=== PATIENT | male | born 1965 | race Caucasian/White ===

== ENCOUNTER → 2016-10-21 | Outpatient (CLI) | payer OTHER ==
[~2016-10-21] MED LIST: ACETAMINOPHEN650 M1 PO; ADVANCED ANTAC355 ML PO; ALEVE220 M1 PO; AMBIEN PO; ANTARA PO; B-121000 MC1 PO; B12 HEALTH1000 MCG/1 PO; BACTRIM DS TABL1 TA1 PO; BYSTOLIC5 MG PO; CELEXA20 MG PO; CLEOCIN HCL300 M1 PO; COMBIVENT U/D3 M2 INH; COREG12.5 MG PO; CYMBALTA PO; CYMBALTA20 MG; CYMBALTA20 MG PO; CYMBALTA30 MG PO; DEPRIZINE15 MG/1 ML PO; DESYREL50 MG PO; DIOVAN 320 MG PO; DIOVAN HCT 320/1 TA2 PO; DIOVAN160 MG PO; DIOVAN40 MG PO; DULOXETINE HCL60 MG PO; EXFORGE 5-160 M1 TAB PO; EXFORGE HCT 101 EAC2 PO; FLEXERIL PO; FLEXERIL10 M1 PO; FLEXERIL10 MG PO; FOLIC ACID PO; FOLIC ACID1 MG PO; HYDROCODON-ACE1 EAC4 PO; HYDROCODONE-APA1 T54 PO; IBUPROFEN800 MG PO; ITRACONAZOLE100 MG PO; KCL PO; KEFLEX500 MG PO; KEPPRA100 MG/ML PO; KEPPRA500 M1 PO; KEPPRA500 M2 PO; KEPPRA500 MG PO; LIBRIUM25 MG PO; LIPITOR PO; LISINOPRIL20 MG PO; LORTAB 10-5001 EACH PO; LORTAB 10/500 T1 TAB PO; LOVASTATIN10 MG PO; LOVASTATIN20 M1 PO; LOVASTATIN20 M2 PO; LOVASTATIN20 MG PO; MAG-OX 400400 M1 PO; MAGNESIUM-VIT1 EACH PO; MAGOX 400400 MG PO; MEDROL4 MG/DOSE-; MELOXICAM15 MG PO; MELOXICAM7.5 MG/5 M PO; METFORMIN; MOBIC PO; MUCINEX22 ML PO; MULTI VITAMIN1 EACH PO; NEPHROCAPS1 CAP; NICOTINE P1 PATCH .3 TD; NICOTINE TRANSD21 MG EXT; NORVASC 5 MG PO; NORVASC PO; PHENERGAN25 M1 PO; PHENERGAN25 MG PO; PROTONIX PO; PROTONIX20 MG PO; RANITIDINE HCL150 M1 PO; RENATABS WITH I1 TAB PO; SENNA8.6 M2 PO; STAVZOR500 MG PO; THIAMINE HCL100 M2 PO; THIAMINE HCL100 MG PO; TOPROL XL PO; TRAMADOL HCL50 M1 PO; TYLENOL #3 PO; VISTARIL PO; VIT B1 PO; VITAMIN D400 UNI2; XANAX0.5 MG PO; ZANAFLEX PO; ZANTAC PO; ZANTAC150 M1 PO; ZANTAC150 MG PO
--- NOTE | ~2016-10-21 | US6 ---
[facility] A Service of [facility] RADIOLOGY TEXT RESULTS PATIENT: KWAME MONTANA LOCATION: US : 61 UNIT #: [id number] AGE: [address]: Paxton Reinoso MD SEX: M ORDER DR: [id number] [facility] [address] [place], [place] [address] [id number] O MR#: [id number] Acc #: [id number] NAME: KWAME MONTANA : 1965 SEX: M STUDY DATE/TIME: 10/21/2016 9:02 UNIT: CGUS ROOM: STUDY DESCRIPTION: US Abdominal Limited Attending Physician: Paxton Reinoso M.D. Ordering Physician: Paxton Reinoso M.D. Primary Care Physician: Jeana Calderon M.D. MEDICAL IMAGING REPORT This report is preliminary unless electronic signature is present EXAM Right upper quadrant ultrasound INDICATIONS Intermittent abdominal pain for one month. TECHNIQUE Rodriguez-scale and color Doppler sonographic images were obtained through the right upper quadrant. FINDINGS Visualized portions of the pancreas appear normal. Liver measures within normal size limits. It is relatively homogeneous in echotexture. I do not see any focal hepatic lesions and there is no intra or extrahepatic biliary dilatation. Main portal vein is patent with a time-out flow. Right kidney is normal appearance with no solid or cystic renal mass is seen and no hydronephrosis identified. The gallbladder is unremarkable in appearance with no stones or sludge identified. There is no gallbladder wall thickening or pericholecystic fluid. IMPRESSION Normal right upper quadrant ultrasound. Dictated by... Shantelle Henning M.D. THIS IS AN ELECTRONICALLY VERIFIED REPORT Shantelle Henning M.D. at 10/21/2016 4:39 PM AFF/to TD: 10/21/2016 13:14 JOB #: [id number] [facility] A Service of [facility] RADIOLOGY TEXT RESULTS PATIENT: KWAME MONTANA LOCATION: [facility] : 61 UNIT #: [id number] AGE: [address]: Paxton Reinoso MD SEX: M ORDER DR: MEDICAL IMAGING REPORT Page 1 of 1 COPY
[2016-10-21 09:20] LABS: HEMATOCRIT 46.4 % (38.0-50.0); HEMOGLOBIN 14.8 gm/dL (13.0-16.0); MEAN CELL VOLUME 94.1 FL (83-96); MEAN CORPUSCULAR HEMOGLOBIN 30.1 PG (28-34); MEAN PLATELET VOLUME 10.9 FL (6.5-11.5); RED BLOOD COUNT 4.93 X10e (3.90-5.60); RED CELL DISTRIBUTION WIDTH 14.2 % (11.0-15.5); WHITE BLOOD COUNT 11.5 X10e3 (4.0-10.5)
[2016-10-21 10:05] LABS: ALBUMIN SERUM 4.4 g/dL (3.5-5.0); BILIRUBIN,TOTAL 0.5 mg/dL (0.2-2.0); BUN/CREATININE RATIO 19.09; CALCIUM SERUM 9.8 mg/dL (8.4-10.2); CREATININE SERUM 1.1 mg/dL (0.6-1.4); GLOM FILT RATE Estimated 76.3 mL/min (>60); POTASSIUM 4.7 mmol/L (3.5-5.1); PROTEIN TOTAL SERUM 7.6 g/dL (6.0-8.3)
[2016-10-24 09:15] LABS: HA AB IGM (HEPPAN) Nonreactive (Nonreactive); HB CORE AB IGM (HEPPAN) Nonreactive (Nonreactive); HB S AG (HEPPAN) Nonreactive (Nonreactive); HEP C AB (HEPPAN) Nonreactive (Nonreactive); HEP C AB SIGNAL TO CUTOFF 0.82 ratio (<1.00)
== END | disposition home or self-care (01) ==
LOC: CLAB 08:20
PROVIDERS: Internal Medicine
DX: K75.9 Inflammatory liver disease, unspecified (principal)
CPT/HCPCS: 36415; 76705; 80053; 80074; 85027

== ENCOUNTER → 2016-10-22 | Day surgery (SDC) | payer OTHER ==
--- NOTE | ~2016-10-22 | OR ---
Unit #: [id number] #: [id number] Patient: KWAME MONTANA [id number] [address] [address] [id number] O MR#: [id number] NAME: KWAME MONTANA ROOM: Date of Procedure: 10/22/2016 Admission Date: 10/22/2016 Surgeon: Paxton Reinoso M.D. : 1965 Attending Physician: Paxton Reinoso M.D. Referring Physician: Paxton Reinoso M.D. Primary Care Physician: Jeana Calderon M.D. OPERATIVE REPORT PROCEDURE PERFORMED Colonoscopy with snare polypectomy. INDICATIONS FOR PROCEDURE A 51-year-old gentleman with history of adenomatous colon polyps in the past, undergoing colonoscopy for surveillance. MEDICATIONS Monitored anesthesia. POSTOPERATIVE FINDINGS 1. Two polyps in transverse colon, 5 to 6 mm each, both snared and sent for histopathology. 2. Rest of the colon exam to cecum was normal. Prep was good. PLAN Follow up on pathology report. Repeat colonoscopy in 5 years. DESCRIPTION OF PROCEDURE The patient was explained of the procedure, risks, and benefits along with risks and benefits of anesthesia. He was brought to the endoscopy room. Propofol anesthesia was given. Rectal exam was done, which was normal. Colonoscope was lubricated, passed up the rectum, advanced under direct vision all the way to the cecum. Cecum was identified by ileocecal valve and appendiceal orifice. I then started to pull the scope out carefully looking. Two polyps seen in transverse colon, were snared and sent for histopathology. I retroflexed in the rectum, small hemorrhoids seen. Scope was gently pulled out. He tolerated it well. Dictated by... Alyssa Gee/leonidas TD: 10/23/2016 08:42 JOB #: [id number] CC: Jeana Calderon M.D. Unit #: [id number] #: [id number] Patient: KWAME MONTANA OPERATIVE REPORT Page 1 of 1 X Paxton Reinoso MD PROCEDURE OPERATIVE NOTE
== END | disposition home or self-care (01) ==
LOC: COPS 11:52
DX: Z12.11 Encounter for screening for malignant neoplasm of colon (principal); D12.3 Benign neoplasm of transverse colon; Z86.010 Personal history of colon polyps; F17.200 Nicotine dependence, unspecified, uncomplicated; I10 Essential (primary) hypertension; K21.9 Gastro-esophageal reflux disease without esophagitis; Z87.440 Personal history of urinary (tract) infections; Z88.8 Allergy status to other drugs, medicaments and biological substances
CPT/HCPCS: 82947; 88305; J2250

== ENCOUNTER 2017-01-05 19:26 | Inpatient (IN) | payer OTHER ==
--- NOTE | ~2017-01-05 | US77 ---
[facility] A Service of [facility] RADIOLOGY TEXT RESULTS PATIENT: KWAME MONTANA LOCATION: [facility] : [birth year] UNIT #: [id number] AGE: [address]: Amara Bryant MD SEX: M ORDER DR: [id number] [facility] [address] [place], [place] [address] [id number] I MR#: [id number] Acc #: [id number] NAME: KWAME MONTANA : 1965 SEX: M STUDY DATE/TIME: 01/06/2017 14:45 UNIT: CICCU2 ROOM: [facility] STUDY DESCRIPTION: US Kidney Bilateral Complete Attending Physician: Amara Bryant M.D. Ordering Physician: Amara Bryant M.D. Primary Care Physician: Jeana Calderon M.D. MEDICAL IMAGING REPORT This report is preliminary unless electronic signature is present EXAM Bilateral renal ultrasound HISTORY Renal failure with elevated creatinine of 3.2 FINDINGS Ultrasound examination of both kidneys demonstrates no renal mass. No hydronephrosis or perinephric stranding. No focal renal parenchymal atrophy or perinephric fluid collection. The urinary bladder was not visualized. The right kidney measures approximately 10.9 cm in length and the left kidney measures approximately 10.8 cm in length. IMPRESSION 1. Normal ultrasound examination of both kidneys. 2. The urinary the urinary bladder was not visualized. Dictated by... Faisal Ha M.D. THIS IS AN ELECTRONICALLY VERIFIED REPORT Faisal Ha M.D. at 01/06/2017 10:53 PM DFL/to TD: 01/06/2017 17:59 JOB #: [id number] MEDICAL IMAGING REPORT Page 1 of 1 COPY
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
--- NOTE | ~2017-01-05 | CO ---
Unit #: [id number] #: [id number] Patient: KWAME MONTANA 131120 [facility] [address] [place], [place] [address] [id number] I MR#: [id number] NAME: KWAME MONTANA ROOM: 330 Age: 51 Sex: M Admission Date: 01/05/2017 : 1965 Attending Physician: Amara Bryant M.D. Primary Care Physician: Jeana Calderon M.D. Consultation Date: 01/13/2017 CONSULTATION REPORT REASON FOR CONSULTATION Followup. DISCUSSION Mr. Wagner is a 51-year-old white male, seen in room 330, bed 1 on 01/13/2017 at [facility]. The patient was admitted with acute renal failure. The patient has a history of depression and alcohol abuse. The patient reports medication is helping him, dressed casually in hospital attire, lying comfortably in bed. The patient reports that he was able to sleep good after a long period of time. Mood is better. Denied any thoughts of harming self or others or any psychotic symptom. REVIEW OF SYSTEMS Complete review of systems is unremarkable. MENTAL STATUS EXAMINATION The patient's vital signs; temperature 98.1, pulse 94, respiratory rate 20, blood pressure 131/79, and oxygen saturation 97%. General appearance; the patient dressed in hospital attire. Attention span and concentration, fair. Speech, regular rate and coherent. Oriented in time, place, and person. Mood and affect, labile. Thought process, coherent. Thought content, the patient denied any thoughts of harming self or others or any psychotic symptom. Recent and remote memory, fair. Fund of knowledge, fair. Insight and judgment, fair to slightly impaired. DIAGNOSES Psychiatric: Major depressive disorder, recurrent, severe, F33.2; alcohol use disorder, moderate, F10.20; anxiety disorder, not otherwise specified, F40.01. ASSESSMENT/PLAN 1. Supportive psychotherapy and psychoeducation provided to the patient. 2. Educated about benefits and side effects of medication and course and prognosis of illness. 3. Advised to continue with current medication combination. If needed, consider further adjustment of medication. Please feel free to call if any questions, telephone #[phone]. Dictated by... EnioAlyssa Sethi/leonidas Unit #: [id number] #: [id number] Patient: KWAME MONTANA TD: 01/14/2017 22:48 JOB #: [id number] CONSULTATION REPORT Page 1 of 1 X Enio Finnegan MD CONSULTATION REPORT
--- NOTE | ~2017-01-05 | CR72 ---
[facility] A Service of [facility] RADIOLOGY TEXT RESULTS PATIENT: KWAME MONTANA LOCATION: [address] : [birth year] UNIT #: [id number] AGE: [address]: Amara Bryant MD SEX: M ORDER DR: [id number] [facility] [address]. [place], [place] [address] [id number] I MR#: [id number] Acc #: [id number] NAME: KWAME MONTANA : 1965 SEX: M STUDY DATE/TIME: 01/05/2017 23:30 UNIT: [facility] ROOM: [facility] STUDY DESCRIPTION: CR Chest Single View Portable Attending Physician: Amara Bryant M.D. Ordering Physician: Liudmila Mancilla M.D. Primary Care Physician: Jeana Calderon M.D. MEDICAL IMAGING REPORT This report is preliminary unless electronic signature is present EXAM Single view chest x-ray 01/05/2017 HISTORY A 51-year-old male in the ED with acute respiratory failure. Intubated. Symptoms began at about 6 to 7 p.m. TECHNIQUE AP portable chest x-ray. FINDINGS Newly placed endotracheal tube tip in the mid thoracic trachea about 4.3 cm above the nasim. The lungs are symmetrically expanded and clear. Cardiomediastinal silhouette is within normal limits. IMPRESSION Newly placed ETT in good position. Dictated by... Rosalio Andersen M.D. THIS IS AN ELECTRONICALLY VERIFIED REPORT Rosalio Andersen M.D. at 01/06/2017 6:05 AM DIPTI/lv TD: 01/05/2017 23:45 JOB #: [id number] MEDICAL IMAGING REPORT Page 1 of 1 COPY
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
--- NOTE | ~2017-01-05 | CR7 ---
[facility] A Service of [facility] & [facility] RADIOLOGY TEXT RESULTS PATIENT: KWAME MONTANA LOCATION: [address] : [birth year] UNIT #: [id number] AGE: [address]: Amara Bryant MD SEX: M ORDER DR: [id number] [facility] [address] [facility] [address]. [place], [place] [address] [id number] I MR#: [id number] Acc #: [id number] NAME: KWAME MONTANA : 1965 SEX: M STUDY DATE/TIME: 01/06/2017 12:50 UNIT: [facility] ROOM: [facility] STUDY DESCRIPTION: CR Abdomen Single AP View Attending Physician: Amara Bryant M.D. Ordering Physician: Amrik Gutierrez M.D. Primary Care Physician: Jeana Calderon M.D. MEDICAL IMAGING REPORT This report is preliminary unless electronic signature is present EXAM Portable abdomen. HISTORY Dobbhoff tube placement today. FINDINGS Portable radiograph of the abdomen for Dobbhoff tube placement demonstrates the feeding tube tip is in the left upper quadrant in the proximal stomach 18 cm beyond the EG junction. The bowel gas pattern is normal. No bowel dilatation or displacement. No abnormal calcifications. IMPRESSION Feeding tube tip in the proximal stomach in the left upper quadrant 18 cm beyond the EG junction. Normal bowel gas pattern. Dictated by... Faisal Ha M.D. THIS IS AN ELECTRONICALLY VERIFIED REPORT Faisal Ha M.D. at 01/06/2017 10:51 PM DAVID/brian TD: 01/06/2017 16:15 JOB #: [id number] MEDICAL IMAGING REPORT Page 1 of 1 COPY
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
--- NOTE | ~2017-01-05 | CO ---
Unit #: [id number] #: [id number] Patient: BERNARD MONTANA [id number] [facility] [address] [place], [place] [address] [id number] I MR#: [id number] NAME: BERNARD MONTANA ROOM: 330 Age: 51 Sex: M Admission Date: 01/05/2017 : 1965 Attending Physician: Amara Bryant M.D. Primary Care Physician: Jeana Calderon M.D. Consultation Date: 01/14/2017 CONSULTATION REPORT DISCUSSION Mr. Bernard Montana is a 51-year-old male, seen in room 330, bed 1 on 01/14/2017 at [facility]. The patient dressed in hospital attire, lying comfortably in bed. The patient's affect bright, mood good. Made good eye contact. The patient reports that he is feeling better. Sleeping good. Decrease in anxiety, depression. Denied any current suicidal or homicidal ideation. Denied any psychotic symptom. The patient reports that he is almost ready to go home and would like to follow up with the outpatient program at [facility]. Complete review of systems is unremarkable. The patient's vital signs; temperature 98.6, pulse 98, respirations 20, blood pressure 120/81, oxygen saturation 98%. General appearance; the patient dressed casually. The patient did not show any facial deformity. Musculoskeletal; please see above. MENTAL STATUS EXAMINATION Vital signs; please see above. General appearance; the patient dressed casually. Attention span and concentration, fair. Speech, regular rate and coherent. Oriented in time, place, and person. Mood and affect, sad and dysphoric. Thought process, coherent. Thought content, the patient denied any thoughts of harming self or others. Recent and remote memory, fair. Language, intact. Fund of knowledge, fair. Insight and judgment, fair to slightly impaired. DIAGNOSES Psychiatric: Major depressive disorder, recurrent, severe, F33.2; alcohol use disorder, severe, F10.20. ASSESSMENT/PLAN 1. Supportive psychotherapy and psychoeducation provided to the patient. 2. Educated about benefits and side effects of medication and course and prognosis of illness. 3. Advised to continue with current treatment and follow up in outpatient program at [facility]. Please feel free to call if any questions, telephone #[phone]. Dictated by... Alyssa Gilmore/leonidas TD: 01/15/2017 19:05 JOB #: [id number] Unit #: [id number] #: [id number] Patient: BERNARD MONTANA CONSULTATION REPORT Page 1 of 1 X Enio Finnegan MD X CONSULTATION REPORT
--- NOTE | ~2017-01-05 | CR72 ---
[facility] A Service of [facility] & [facility] RADIOLOGY TEXT RESULTS PATIENT: KWAME MONTANA LOCATION: [facility] 330- : [birth year] UNIT #: [id number] AGE: [address]: Amara Bryant MD SEX: M ORDER DR: [id number] [facility] [address] [facility]. [place], [place] [address] [id number] I MR#: [id number] Acc #: [id number] NAME: KWAME MONTANA : 1965 SEX: M STUDY DATE/TIME: 01/13/2017 5:32 UNIT: [address] ROOM: [facility] STUDY DESCRIPTION: CR Chest Single View Portable Attending Physician: Amara Bryant M.D. Ordering Physician: Amrik Gutierrez M.D. Primary Care Physician: Jeana Calderon M.D. MEDICAL IMAGING REPORT This report is preliminary unless electronic signature is present EXAM Portable chest. INDICATION Followup pneumonia. Respiratory failure for 8 days. COMPARISON 01/10/17. FINDINGS Band of atelectasis within the left base. No new infiltrates. Improved aeration of the right base. Heart size stable. IMPRESSION Improved appearance of the chest with improved aeration of the right base and decreased atelectasis at the left base. Dictated by... Jin Millan M.D. THIS IS AN ELECTRONICALLY VERIFIED REPORT Jin Millan M.D. at 01/13/2017 6:58 AM ARS/bd TD: 01/13/2017 06:54 JOB #: [id number] MEDICAL IMAGING REPORT Page 1 of 1 COPY
--- NOTE | ~2017-01-05 | CO ---
Unit #: [id number] #: [id number] Patient: KWAME MONTANA [id number] [facility] [address] [place], [place] [address] [id number] I MR#: [id number] NAME: KWAME MONTANA ROOM: 330 Age: 51 Sex: M Admission Date: 01/05/2017 : 1965 Attending Physician: Amara Bryant M.D. Primary Care Physician: Jeana Calderon M.D. Consultation Date: 01/12/2017 CONSULTATION REPORT REASON FOR CONSULTATION Alcohol abuse, depression. HISTORY OF PRESENT ILLNESS Mr. Wagner is a 51-year-old white male, seen in room 330, bed 1 on 01/12/2017 at [facility]. The patient was admitted with a diagnosis of acute renal failure. The patient admitted having problem with depression and alcohol abuse. The patient was last assessed at [facility] in 2015 for alcohol abuse. The patient also has a history of depression. The patient was treated last at [facility] in 2015 diagnosed with major depressive disorder, alcohol abuse. The patient currently denied any suicidal or homicidal ideation. Denied any psychotic symptom. Reported trouble sleeping, anxiety, feeling sad, depressed. The patient's vital signs; temperature 98.2, pulse 83, respiratory rate 18, blood pressure 126/79, and oxygen saturation 99%. The patient admitted use of alcohol on a daily basis, last use prior to admission. Denied any use of any street drugs. PAST PSYCHIATRIC HISTORY Remarkable for history of depression, history of alcohol abuse, history of inpatient treatment at [facility] in 2015. MEDICAL HISTORY History of peptic ulcer disease, pancreatitis, alcoholism, hypertension, hyperlipidemia, seizure disorder, chronic pain. MEDICATIONS The patient is on Keppra, Desyrel, folic acid, Cymbalta, vitamin B, magnesium, vitamin D, Phenergan, multivitamin, MAGnesium-Oxide, Protonix, Xanax, tramadol, Glucophage. ALLERGIES The patient reports that he is allergic to Zoloft. FAMILY HISTORY AND SOCIAL HISTORY The patient has a good support system from family. No history of abuse. History of substance abuse as mentioned above. REVIEW OF SYSTEMS Complete review of system is unremarkable except as mentioned above. MENTAL STATUS EXAMINATION Vital signs, please see above. General appearance; the patient dressed casually in hospital attire. Attention span and concentration, fair. Unit #: [id number] #: [id number] Patient: KWAME MONTANA Speech, regular rate and somewhat pressured. Oriented in time, place, and person. Mood and affect; sad, dysphoric, anxious. Thought process, coherent. Thought content, the patient denied any thoughts of harming self or others, but somewhat guarded. Recent and remote memory, fair. Language, intact. Fund of knowledge, fair. Insight and judgment, fair to slightly impaired. DIAGNOSES Psychiatric: Major depressive disorder, recurrent, severe, F33.2; alcohol use disorder, severe, F10.20. Secondary diagnosis: Deferred. Medical diagnosis: Please refer to H and P. ASSESSMENT/PLAN 1. Supportive psychotherapy and psychoeducation provided to the patient. 2. Educated about benefits and side effects of medication and course and prognosis of illness. 3. Advised to start the patient on Celexa 20 mg daily, Desyrel 50 mg at bedtime, and Vistaril 25 mg t.i.d. Advised to continue with the other medication. If needed, consider further adjustment of medication. Plan for the patient to stabilize and after that followup at [facility] upon discharge. The patient was also given crisis line #[phone]. Please feel free to call if any questions, telephone #[phone]. Dictated by... Alyssa Gilmore/leonidas TD: 01/13/2017 00:42 JOB #: [id number] CONSULTATION REPORT Page 1 of 1 X Enio Finnegan MD CONSULTATION REPORT
--- NOTE | ~2017-01-05 | CR72 ---
[facility] A Service of [facility] & [facility] RADIOLOGY TEXT RESULTS PATIENT: KWAME MONTANA LOCATION: [address]17 : [birth year] UNIT #: [id number] AGE: [address]: Amara Bryant MD SEX: M ORDER DR: [id number] [facility] [address] [place], [place] [address] [id number] I MR#: [id number] Acc #: [id number] NAME: KWAME MONTANA : 1965 SEX: M STUDY DATE/TIME: 01/07/2017 5:35 UNIT: [facility] ROOM: [facility] STUDY DESCRIPTION: CR Chest Single View Portable Attending Physician: Amara Bryant M.D. Ordering Physician: Amrik Gutierrez M.D. Primary Care Physician: Jeana Calderon M.D. MEDICAL IMAGING REPORT This report is preliminary unless electronic signature is present EXAM Portable chest, 01/07 COMPARISON 01/05 HISTORY Acute respiratory failure. Followup intubation and ventilator management. FINDINGS An AP view is obtained. The patient is intubated. ET tube is in good position above the nasim. Nasoenteric tube is in the stomach. Heart size is stable. Slight increase in left basilar atelectasis. Lungs otherwise are clear. CONCLUSION Tubes and lines in satisfactory position. Slight increase in left basilar atelectasis. Dictated by... Renzo Cunningham M.D. THIS IS AN ELECTRONICALLY VERIFIED REPORT Renzo Cunningham M.D. at 01/09/2017 9:17 AM Robert TD: 01/07/2017 08:43 JOB #: [id number] MEDICAL IMAGING REPORT Page 1 of 1 COPY
--- NOTE | ~2017-01-05 | CT71 ---
[facility] A Service of [facility] RADIOLOGY TEXT RESULTS PATIENT: KWAME MONTANA LOCATION: [facility]09-06 : [birth year] UNIT #: [id number] AGE: [address]: Amara Bryant MD SEX: M ORDER DR: [id number] [address] [address] [id number] E MR#: [id number] Acc #: [id number] NAME: KWAME MONTANA : 1965 SEX: M STUDY DATE/TIME: 01/05/2017 21:30 UNIT: [facility] ROOM: STUDY DESCRIPTION: CT Head Wo Contrast Attending Physician: Liudmila Mancilla M.D. Ordering Physician: Austin Law M.D. Primary Care Physician: Jeana Calderon M.D. MEDICAL IMAGING REPORT This report is preliminary unless electronic signature is present EXAM CT head without contrast INDICATIONS Hallucinations and headache for the past 2-[address] of the head. This CT exam was performed with one or more of the following radiation dose reduction techniques: automatic exposure control, adjustment of mA and/or kV according to patient size, and iterative reconstruction. COMPARISON STUDIES 04/17/2015 FINDINGS No acute hemorrhage, abnormal mass effect, extraaxial collection or hydrocephalus. Air fluid levels in the maxillary sinuses. No calvarial fracture. IMPRESSION No acute intracranial findings. Next mucosal thickening and fluid levels in the maxillary sinuses. Correlate for sinusitis. Dictated by... Zain Recinos M.D. THIS IS AN ELECTRONICALLY VERIFIED REPORT Zain Recinos M.D. at 01/06/2017 2:27 PM EED/lv [facility] A Service [facility] RADIOLOGY TEXT RESULTS PATIENT: KWAME MONTANA LOCATION: CICCU2 CICCU2 : [birth year] UNIT #: [id number] AGE: [address]: Amara Bryant MD SEX: M ORDER DR: TD: 01/05/2017 23:14 JOB #: [id number] MEDICAL IMAGING REPORT Page 1 of 1 COPY
--- NOTE | ~2017-01-05 | DS ---
Unit #: [id number] #: [id number] Patient: KWAME SAHA [id number] [address] [address] [id number] I MR#: [id number] NAME: KWAME SAHA ROOM: 330 Age: 51 Sex: M Admission Date: 01/05/2017 : 1965 Discharge Date: 01/14/2017 Attending Physician: Amara Bryant M.D. Primary Care Physician: Jeana Calderon M.D. DISCHARGE SUMMARY FINAL DIAGNOSES 1. Acute hypoxic respiratory failure. Was intubated in [facility], extubated on 01/09/2017. 2. Pneumonia. 3. Sputum culture positive for methicillin-sensitive Staphylococcus aureus. 4. Severe hypokalemia, which is improved. 5. Acute kidney injury, which is resolved. 6. Alcohol abuse and alcohol withdrawal, which is stable. 7. History of pancreatitis in the past. 8. History of hypertension. 9. Hyperlipidemia. 10. Seizure disorder. 11. Chronic back pain. 12. Chronic thrombocytopenia. DISCHARGE MEDICATIONS 1. Clindamycin p.o. for 5 more days. 2. Folic acid 1 mg p.o. daily. 3. Protonix 40 mg daily. 4. Multivitamin daily. 5. Celexa 20 mg daily. 6. Keppra 500 mg b.i.d. 7. Mag oxide 400 mg b.i.d. 8. Combivent inhaler q.6 hours. 9. Trazodone 50 mg q.h.s. 10. Alprazolam 0.5 mg t.i.d. p.r.n. 11. Vistaril 25 mg t.i.d. 12. Coreg 12.5 mg b.i.d. 13. Lovastatin 20 mg daily. CONSULTATIONS DONE DURING HOSPITALIZATION 1. Dr. Enio Finnegan from psychiatric service. 2. Dr. Otis Drake from renal service. 3. Dr. Matt Ruiz from pulmonary service. HOSPITAL COURSE Mr. Saha is a 51-year-old male who has had multiple admissions in the past. Was admitted because he started complaining of hallucinations. The patient had a seizure in the ER. He was intubated and admitted in the [facility]. The patient was started on treatment for acute respiratory failure, pneumonia, acute renal failure, DT and dehydration. The patient was started on alcohol withdrawal protocol. Dr. Ruiz was consulted. IV antibiotics were started. Eventually the Unit #: [id number] #: [id number] Patient: KWAME SAHA patient's sputum culture was positive for MSSA. The patient's antibiotic has been tapered to clindamycin. That needs to be continued for 5 more days. The patient was also seen by renal. IV fluids were started, and the patient's renal function has much improved. The patient was seen by psychiatry. The patient has major depressive disorder and alcohol use disorder. The patient was started on Celexa 20 mg daily, Desyrel 50 mg at bedtime, Vistaril 25 mg t.i.d. The patient was advised to continue these medications. Patient will need [facility]. The patient was also given Crisis Line, [phone]. The patient does verbalize understanding. The patient's blood pressure medications have been restarted. DISCHARGE PHYSICAL EXAMINATION VITAL SIGNS ON DISCHARGE: Blood pressure 153/94, respiratory rate 18, pulse 74, temperature 98.6, oxygen saturation 99%. RESPIRATORY: Chest has fair air entry. CVS: Regular rhythm. DISCHARGE INSTRUCTIONS 1. Patient is being discharged home in stable condition. 2. Follow up with primary care provider in 1 week. 3. Follow [facility] with [facility]. 4. Alcohol cessation counselling done. 5. Prescriptions are in the chart. Dictated by... Alyssa Patiño/griselda TD: 01/17/2017 08:51 JOB #: [id number] DISCHARGE SUMMARY Page 1 of 1 X Amara Bryant MD X DISCHARGE SUMMARY
--- NOTE | ~2017-01-05 | CR7 ---
[facility] A Service of [facility] & [facility] RADIOLOGY TEXT RESULTS PATIENT: KWAME MONTANA LOCATION: [address] : [birth year] UNIT #: [id number] AGE: [address]: Amara Bryant MD SEX: M ORDER DR: [id number] [facility] [address] [facility]. [place], [place] [address] [id number] I MR#: [id number] Acc #: [id number] NAME: KWAME MONTANA : 1965 SEX: M STUDY DATE/TIME: 01/07/2017 19:32 UNIT: [facility] ROOM: [facility] STUDY DESCRIPTION: CR Abdomen Single AP View Attending Physician: Amara Bryant M.D. Ordering Physician: Amara Bryant M.D. Primary Care Physician: Jeana Calderon M.D. MEDICAL IMAGING REPORT This report is preliminary unless electronic signature is present EXAM Portable abdomen HISTORY Dobbhoff tube placement today. FINDINGS Portable radiograph of the abdomen for Dobbhoff tube placement demonstrates the feeding tube tip is directed superiorly in the left upper quadrant at the level of the gastric fundus 21 cm beyond the EG junction. The visualized bowel gas pattern is normal. Exam does not include the right and left lateral margins of the abdomen or pelvis. Dictated by... Faisal Ha M.D. THIS IS AN ELECTRONICALLY VERIFIED REPORT Faisal Ha M.D. at 01/08/2017 11:42 AM DAVID/lv TD: 01/07/2017 23:20 JOB #: [id number] MEDICAL IMAGING REPORT Page 1 of 1 COPY
--- NOTE | ~2017-01-05 | EKG ---
PATIENT: KWAME MONTANA UNIT #: [id number] Ventricular Rate: 82 BPM Atrial Rate: 82 BPM P-R Interval: 170 ms QRS Duration: 104 ms Q-T Interval: 420 ms QTC Calculation(Bezet): 490 ms P Loyal: 54 degrees Calculated R Loyal: 70 degrees Calculated T Loyal: 47 degrees Diagnosis Line: Normal sinus rhythm Diagnosis Line: Prolonged QT Diagnosis Line: Abnormal ECG Diagnosis Line: When compared with ECG of 27-SEP-2013 05:35, Diagnosis Line: QT has lengthened Diagnosis Line: Confirmed by PIETRO FOWLER MD ([id number]) on 01/06/2017 Diagnosis Line: 6:48:52 PM INTERPRETING MD: MALCOLM QUIGLEY
--- NOTE | ~2017-01-05 | CR72 ---
[facility] A Service of [facility] & [facility] RADIOLOGY TEXT RESULTS PATIENT: KWAME MONTANA LOCATION: [facility] 330-01 : [birth year] UNIT #: [id number] AGE: [address]: Amara Bryant MD SEX: M ORDER DR: [id number] [facility] [address] [facility]. [place], [place] [address] [id number] I MR#: [id number] Acc #: [id number] NAME: KWAME MONTANA : 1965 SEX: M STUDY DATE/TIME: 01/10/2017 6:35 UNIT: [facility] ROOM: [facility] STUDY DESCRIPTION: CR Chest Single View Portable Attending Physician: Amara Bryant M.D. Ordering Physician: aMgdi Carlson M.D. Primary Care Physician: Jeana Calderon M.D. MEDICAL IMAGING REPORT This report is preliminary unless electronic signature is present EXAM Portable chest x-ray, 01/10/17. HISTORY Acute renal failure. COMPARISON 01/07/17 0535 hours. FINDINGS AP radiograph of the chest is presented. Interval removal of endotracheal tube and enteric tube. No acute appearing bony abnormality. Heart borderline enlarged. Stable. Lung volumes improved. Patchy and linear/band-like densities bilateral lung bases increased from prior study. Components of atelectasis and pneumonia could be considered. There is no dense airspace disease. No pleural effusion, pneumothorax or suspicious nodule. Dictated by... Renzo Lewis M.D. THIS IS AN ELECTRONICALLY VERIFIED REPORT Renzo Lewis M.D. at 01/11/2017 5:16 PM Deon TD: 01/10/2017 11:18 JOB #: [id number] MEDICAL IMAGING REPORT Page 1 of 1 COPY
[~2017-01-05 19:26] MED LIST changes: -ACETAMINOPHEN650 M1 PO; -CELEXA20 MG PO; -CLEOCIN HCL300 M1 PO; -COMBIVENT U/D3 M2 INH; -LIPITOR PO; -VISTARIL PO
[2017-01-05 20:14] LABS: BASOPHIL# 0.4 X10e3 (0-0.3); BASOPHIL% 2.8 % (0-2.5); DIFF IND NO; EOSINOPHIL# 0.1 X10e3 (0-0.7); HEMATOCRIT 41.2 % (38.0-50.0); HEMOGLOBIN 13.3 gm/dL (13.0-16.0); LYMPHOCYTE# 2.1 X10e3 (1.0-3.5); LYMPHOCYTE% 16.6 % (17.0-45.0); MEAN CELL VOLUME 91.9 FL (83-96); MEAN CORPUSCULAR HEMOGLOBIN 29.6 PG (28-34); MEAN CORPUSCULAR HGB CONC 32.2 g/dL (30-36); MEAN PLATELET VOLUME 9.9 FL (6.5-11.5); MONOCYTE% 7.5 % (3.0-12.0); NEUTROPHIL# 9.2 X10e3 (1.5-7.1); NEUTROPHIL% 72.1 % (40-75); PLATELET COUNT 260 X10e3 (140-420); RED BLOOD COUNT 4.48 X10e (3.90-5.60); WHITE BLOOD COUNT 12.8 X10e3 (4.0-10.5)
[2017-01-05 20:38] LABS: ALBUMIN SERUM 4.6 g/dL (3.5-5.0); ALKALINE PHOSPHATASE 45 U/L (32-92); ALT (SGPT) 13 U/L (10-40); AST (SGOT) 17 U/L (10-42); BILIRUBIN, DIRECT 0.1 mg/dL (0.0-0.2); BILIRUBIN,INDIRECT 1.4 mg/dL (0.0-0.9); BILIRUBIN,TOTAL 1.5 mg/dL (0.2-2.0); BLOOD UREA NITROGEN 32 mg/dL (9-23); BUN/CREATININE RATIO 9.41; CALCIUM SERUM 9.1 mg/dL (8.4-10.2); CARBON DIOXIDE 16 mmol/L (22-31); CHLORIDE 99 mmol/L (100-111); CREATININE SERUM 3.4 mg/dL (0.6-1.4); GLOM FILT RATE Estimated 19.5 mL/min (>60); GLUCOSE FASTING 73 mg/dL (70-110); POTASSIUM 4.4 mmol/L (3.5-5.1); PROTEIN TOTAL SERUM 7.6 g/dL (6.0-8.3); SALICYLATE <4.0 mg/dL; SODIUM 133 mmol/L (135-145)
[2017-01-05 20:47] LABS: ACETAMINOPHEN <10 ug/mL; ALCOHOL BLOOD <5 mg/dL ([, 0])
[2017-01-05 21:33] LABS: URINE SOURCE CLEAN CATCH
[2017-01-05 21:40] LABS: URINE APPEARANCE CLOUDY; URINE BLOOD NEG (NEG); URINE COLOR DK YELLOW; URINE GLUCOSE NEG (NEG); URINE KETONE 1+ (NEG); URINE LEUKOCYTE ESTERASE TRACE (NEG); URINE NITRATE NEG (NEG); URINE PROTEIN 2+ (NEG); URINE SPECIFIC GRAVITY 1.024 (1.003-1.035)
[2017-01-05 21:42] LABS: URINE BACTERIA AUWI NEG (NEGATIVE); URINE SQUAMOUS EPITHELIAL CELL FEW /[HPF]
[2017-01-05 21:50] LABS: URINE BILIRUBIN NEG (NEG)
[2017-01-05 21:51] LABS: CULTURE INDICATED? NO; URINE AMORPHOUS SEDIMENT AMORP URATES
[2017-01-05 22:18] LABS: AMPHETAMINE NEG (NEG); BARBITURATES NEG (NEG); BENZODIAZEPINES NEG (NEG); COCAINE NEG (NEG); MARIJUANA NEG (NEG); OPIATES NEG (NEG); TRICYCLIC ANTIDEPRESSANTS POS (NEG); U METHADONE NEG (NEG)
[2017-01-05 22:20] LABS: MAGNESIUM 1.1 mg/dL (1.6-3.0); PHOSPHOROUS 4.7 mg/dL (2.5-4.6)
[2017-01-05 23:40] LABS: ARTERIAL BLOOD GAS PCO2 44.3 mmHg (35.0-45.0); ARTERIAL BLOOD GAS pH 7.146 (7.350-7.450)
[2017-01-05 23:41] LABS: ARTERIAL BLD GAS O2 SATURATION 99.5 % (90.0-100.0); ARTERIAL BLOOD GAS ALLEN TEST NORMAL; ARTERIAL BLOOD GAS ART SITE RIGHT RADIAL; ARTERIAL BLOOD GAS CARBOXY HB 0.1 %sat (0.0-9.0); ARTERIAL BLOOD GAS HCO3 15.3 mmol/L; ARTERIAL BLOOD GAS MET HB 0.9 %sat (0.0-2.0); ARTERIAL DRAW? YES
[2017-01-06 00:52] LABS: ARTERIAL BLOOD GAS ALLEN TEST NORMAL; ARTERIAL BLOOD GAS ART SITE RIGHT RADIAL; ARTERIAL BLOOD GAS CARBOXY HB 0.2 %sat (0.0-9.0); ARTERIAL BLOOD GAS DELIVERY VENT; ARTERIAL BLOOD GAS HCO3 16.7 mmol/L; ARTERIAL BLOOD GAS PCO2 37.8 mmHg (35.0-45.0); ARTERIAL BLOOD GAS VENT MODE AC; ARTERIAL BLOOD GAS pH 7.254 (7.350-7.450); ARTERIAL DRAW? YES
[2017-01-06 01:36] LABS: POC - CKMB 2.3 ng/mL (0.0-7.9); POC - TROPONIN <0.05 ng/mL (<=0.05)
[2017-01-06 04:14] LABS: BASOPHIL% 0.3 % (0-2.5); EOSINOPHIL# 0.1 X10e3 (0-0.7); EOSINOPHIL% 0.7 % (0.0-7.0); LYMPHOCYTE# 2.3 X10e3 (1.0-3.5); LYMPHOCYTE% 18.5 % (17.0-45.0); MEAN CORPUSCULAR HEMOGLOBIN 29.8 PG (28-34); MEAN PLATELET VOLUME 9.9 FL (6.5-11.5); MONOCYTE# 1.2 X10e3 (0-1.0); MONOCYTE% 9.5 % (3.0-12.0); PLATELET COUNT 211 X10e3 (140-420); RED BLOOD COUNT 3.76 X10e (3.90-5.60); RED CELL DISTRIBUTION WIDTH 15.2 % (11.0-15.5); WHITE BLOOD COUNT 12.6 X10e3 (4.0-10.5)
[2017-01-06 04:20] LABS: CREATININE,RANDOM URINE 183 mg/dL; SODIUM URINE RANDOM 98 mmol/L; TOTAL PROTEIN,RANDOM URINE 32 mg/dl (<10)
[2017-01-06 04:24] LABS: DIFF IND NO; HEMOGLOBIN 11.2 gm/dL (13.0-16.0)
[2017-01-06 04:38] LABS: ARTERIAL BLD GAS O2 SATURATION 99.1 % (90.0-100.0); ARTERIAL BLOOD GAS ALLEN TEST NORMAL; ARTERIAL BLOOD GAS ART SITE LEFT RADIAL; ARTERIAL BLOOD GAS CARBOXY HB 0.3 %sat (0.0-9.0); ARTERIAL BLOOD GAS DELIVERY VENT; ARTERIAL BLOOD GAS HCO3 14.7 mmol/L; ARTERIAL BLOOD GAS MET HB 1.3 %sat (0.0-2.0); ARTERIAL BLOOD GAS PCO2 37.5 mmHg (35.0-45.0); ARTERIAL BLOOD GAS VENT MODE AC; ARTERIAL BLOOD GAS pH 7.202 (7.350-7.450); ARTERIAL DRAW? YES
[2017-01-06 04:58] LABS: ALBUMIN SERUM 3.6 g/dL (3.5-5.0); BILIRUBIN,TOTAL 1.6 mg/dL (0.2-2.0); BUN/CREATININE RATIO 10.93; CALCIUM SERUM 7.7 mg/dL (8.4-10.2); CREATININE SERUM 3.2 mg/dL (0.6-1.4); POTASSIUM 4.8 mmol/L (3.5-5.1); PROTEIN TOTAL SERUM 5.6 g/dL (6.0-8.3)
[2017-01-07 04:18] LABS: ARTERIAL BLD GAS O2 SATURATION 97.2 % (90.0-100.0); ARTERIAL BLOOD GAS ALLEN TEST NORMAL; ARTERIAL BLOOD GAS ART SITE RIGHT RADIAL; ARTERIAL BLOOD GAS CARBOXY HB 0.4 %sat (0.0-9.0); ARTERIAL BLOOD GAS DELIVERY VENT; ARTERIAL BLOOD GAS HCO3 23.7 mmol/L; ARTERIAL BLOOD GAS MET HB 0.7 %sat (0.0-2.0); ARTERIAL BLOOD GAS PCO2 41.8 mmHg (35.0-45.0); ARTERIAL BLOOD GAS VENT MODE AC; ARTERIAL BLOOD GAS pH 7.362 (7.350-7.450); ARTERIAL DRAW? YES
[2017-01-07 05:16] LABS: HEMATOCRIT 34.9 % (38.0-50.0); HEMOGLOBIN 11.4 gm/dL (13.0-16.0); MEAN CORPUSCULAR HEMOGLOBIN 30.3 PG (28-34); MEAN CORPUSCULAR HGB CONC 32.6 g/dL (30-36); MEAN PLATELET VOLUME 10.4 FL (6.5-11.5); RED BLOOD COUNT 3.76 X10e (3.90-5.60); RED CELL DISTRIBUTION WIDTH 15.1 % (11.0-15.5)
[2017-01-07 05:51] LABS: BILIRUBIN,TOTAL 0.9 mg/dL (0.2-2.0); BUN/CREATININE RATIO 12.14; CALCIUM SERUM 7.2 mg/dL (8.4-10.2); CREATININE SERUM 1.4 mg/dL (0.6-1.4); MAGNESIUM 1.2 mg/dL (1.6-3.0); POTASSIUM 3.8 mmol/L (3.5-5.1)
[2017-01-07 15:00] LABS: URINE APPEARANCE CLOUDY; URINE BILIRUBIN NEG (NEG); URINE BLOOD NEG (NEG); URINE COLOR YELLOW; URINE GLUCOSE >1000 MG/DL (NEG); URINE KETONE NEG (NEG); URINE LEUKOCYTE ESTERASE NEG (NEG); URINE NITRATE NEG (NEG); URINE PH 5.5 (5-8); URINE PROTEIN NEG (NEG); URINE SPECIFIC GRAVITY 1.023 (1.003-1.035); URINE UROBILINOGEN 0.2 MG/DL (NEG)
[2017-01-07 15:05] LABS: CULTURE INDICATED? NO
[2017-01-08 04:53] LABS: ALBUMIN SERUM 2.8 g/dL (3.5-5.0); BILIRUBIN,TOTAL 0.4 mg/dL (0.2-2.0); BUN/CREATININE RATIO 8.88; CALCIUM SERUM 7.3 mg/dL (8.4-10.2); CREATININE SERUM 0.9 mg/dL (0.6-1.4); GLOM FILT RATE Estimated 97.2 mL/min (>60); MAGNESIUM 1.4 mg/dL (1.6-3.0); PHOSPHOROUS 2.7 mg/dL (2.5-4.6); POTASSIUM 3.6 mmol/L (3.5-5.1); PROTEIN TOTAL SERUM 5.3 g/dL (6.0-8.3)
[2017-01-08 08:41] LABS: ARTERIAL BLD GAS O2 SATURATION 97.8 % (90.0-100.0); ARTERIAL BLOOD GAS CARBOXY HB 0.2 %sat (0.0-9.0); ARTERIAL BLOOD GAS HCO3 25.4 mmol/L; ARTERIAL BLOOD GAS PO2 93.2 mmHg (80.0-100); ARTERIAL BLOOD GAS pH 7.444 (7.350-7.450)
[2017-01-08 08:42] LABS: ARTERIAL BLOOD GAS ALLEN TEST NORMAL; ARTERIAL BLOOD GAS ART SITE LEFT RADIAL; ARTERIAL BLOOD GAS DELIVERY VENT; ARTERIAL BLOOD GAS VENT MODE CPAP; ARTERIAL DRAW? YES
[2017-01-09 05:39] LABS: BASOPHIL# 0.1 X10e3 (0-0.3); BASOPHIL% 1.2 % (0-2.5); EOSINOPHIL# 0.4 X10e3 (0-0.7); EOSINOPHIL% 3.9 % (0.0-7.0); HEMATOCRIT 37.6 % (38.0-50.0); HEMOGLOBIN 12.4 gm/dL (13.0-16.0); LYMPHOCYTE# 1.2 X10e3 (1.0-3.5); LYMPHOCYTE% 12.2 % (17.0-45.0); MEAN CELL VOLUME 91.4 FL (83-96); MEAN CORPUSCULAR HGB CONC 32.8 g/dL (30-36); MEAN PLATELET VOLUME 11.2 FL (6.5-11.5); MONOCYTE# 0.6 X10e3 (0-1.0); MONOCYTE% 6.3 % (3.0-12.0); NEUTROPHIL# 7.3 X10e3 (1.5-7.1); NEUTROPHIL% 76.4 % (40-75); PLATELET COUNT 181 X10e3 (140-420); RED BLOOD COUNT 4.12 X10e (3.90-5.60); RED CELL DISTRIBUTION WIDTH 14.9 % (11.0-15.5); WHITE BLOOD COUNT 9.5 X10e3 (4.0-10.5)
[2017-01-09 05:44] LABS: DIFF IND NO
[2017-01-09 06:53] LABS: BUN/CREATININE RATIO 7.14; CALCIUM SERUM 8.1 mg/dL (8.4-10.2); CREATININE SERUM 0.7 mg/dL (0.6-1.4); GLOM FILT RATE Estimated 107.8 mL/min (>60); MAGNESIUM 1.1 mg/dL (1.6-3.0); POTASSIUM 3.6 mmol/L (3.5-5.1)
[2017-01-09 15:59] LABS: URINE APPEARANCE CLEAR; URINE BILIRUBIN NEG (NEG); URINE BLOOD NEG (NEG); URINE COLOR YELLOW; URINE GLUCOSE 100 MG/DL (NEG); URINE KETONE 1+ (NEG); URINE LEUKOCYTE ESTERASE NEG (NEG); URINE NITRATE NEG (NEG); URINE PH 8.5 (5-8); URINE PROTEIN NEG (NEG); URINE UROBILINOGEN 0.2 MG/DL (NEG)
[2017-01-09 16:04] LABS: CULTURE INDICATED? NO
[2017-01-09 16:06] LABS: CREATININE,RANDOM URINE 31 mg/dL; SODIUM URINE RANDOM 171 mmol/L
[2017-01-09 16:23] LABS: BUN/CREATININE RATIO 6.25; CALCIUM SERUM 8.2 mg/dL (8.4-10.2); CREATININE SERUM 0.8 mg/dL (0.6-1.4); MAGNESIUM 1.4 mg/dL (1.6-3.0); POTASSIUM 3.6 mmol/L (3.5-5.1)
[2017-01-10 02:15] LABS: CALCIUM SERUM 8.5 mg/dL (8.4-10.2); GLOM FILT RATE Estimated 85.6 mL/min (>60); POTASSIUM 3.7 mmol/L (3.5-5.1)
[2017-01-10 15:32] LABS: CHLAMYDIA TRACH Not Detected (Not Detected); N GONOR Not Detected (Not Detected)
[2017-01-11 05:52] LABS: HEMATOCRIT 35.7 % (38.0-50.0); HEMOGLOBIN 11.8 gm/dL (13.0-16.0); MEAN CELL VOLUME 88.5 FL (83-96); MEAN CORPUSCULAR HEMOGLOBIN 29.3 PG (28-34); MEAN CORPUSCULAR HGB CONC 33.1 g/dL (30-36); RED BLOOD COUNT 4.04 X10e (3.90-5.60); RED CELL DISTRIBUTION WIDTH 14.3 % (11.0-15.5); WHITE BLOOD COUNT 15.6 X10e3 (4.0-10.5)
[2017-01-11 06:57] LABS: BUN/CREATININE RATIO 11.11; CALCIUM SERUM 8.2 mg/dL (8.4-10.2); CREATININE SERUM 0.9 mg/dL (0.6-1.4); GLOM FILT RATE Estimated 97.2 mL/min (>60); MAGNESIUM 1.3 mg/dL (1.6-3.0)
[2017-01-11 07:13] LABS: POTASSIUM 2.8 mmol/L (3.5-5.1)
[2017-01-12 06:57] LABS: BUN/CREATININE RATIO 12.5; CALCIUM SERUM 8.8 mg/dL (8.4-10.2); CREATININE SERUM 0.8 mg/dL (0.6-1.4); MAGNESIUM 1.4 mg/dL (1.6-3.0); POTASSIUM 3.3 mmol/L (3.5-5.1)
[2017-01-13 05:36] LABS: HEMATOCRIT 41.5 % (38.0-50.0); HEMOGLOBIN 13.6 gm/dL (13.0-16.0); MEAN CELL VOLUME 91.3 FL (83-96); MEAN CORPUSCULAR HEMOGLOBIN 29.8 PG (28-34); MEAN CORPUSCULAR HGB CONC 32.7 g/dL (30-36); MEAN PLATELET VOLUME 11.2 FL (6.5-11.5); RED BLOOD COUNT 4.55 X10e (3.90-5.60); RED CELL DISTRIBUTION WIDTH 14.6 % (11.0-15.5); WHITE BLOOD COUNT 9.5 X10e3 (4.0-10.5)
[2017-01-13 06:17] LABS: PROCALCITONIN 0.16 NG/ML
[2017-01-13 06:31] LABS: BUN/CREATININE RATIO 14.44; CALCIUM SERUM 9.3 mg/dL (8.4-10.2); CREATININE SERUM 0.9 mg/dL (0.6-1.4); GLOM FILT RATE Estimated 97.2 mL/min (>60); MAGNESIUM 1.5 mg/dL (1.6-3.0); POTASSIUM 4.4 mmol/L (3.5-5.1)
[2017-01-14 06:27] LABS: BUN/CREATININE RATIO 15.55; CREATININE SERUM 0.9 mg/dL (0.6-1.4); GLOM FILT RATE Estimated 97.2 mL/min (>60); MAGNESIUM 1.4 mg/dL (1.6-3.0); POTASSIUM 4.5 mmol/L (3.5-5.1)
[2017-01-14] MEDS ORDERED: CELEXA20 MG PO (13:17)
[2017-01-14] MEDS ORDERED: VISTARIL PO (13:17)
[2017-01-14] MEDS ORDERED: COMBIVENT U/D3 M2 INH ×2 (13:21→13:22)
[2017-01-14] MEDS ORDERED: CLEOCIN HCL300 M1 PO (15:28)
[2017-01-14] MEDS ORDERED: LIPITOR PO (15:30)
[2017-01-14] MEDS ORDERED: ACETAMINOPHEN650 M1 PO (15:31)
== END 2017-01-14 16:32 | disposition home or self-care (01) | DRG 208 ==
LOC: CED 19:26 → CEDOF 23:33 → CICCU2 23:40 → CEDOF 23:40 → CICCU2 01-06 01:50 → CICCU3 01-07 19:14 → CICCU2 01-08 20:27 → CICCU3 01-09 03:19 → C3A PCU 01-10 18:50
PROVIDERS: Emergency Medicine; Internal Medicine Nephrology; Internal Medicine Pulmonary Disease; Nurse Practitioner; Physician Assistant Medical
PROC: 5A1945Z Respiratory Ventilation, 24-96 Consecutive Hours (ICD-10-PCS; principal; 2017-01-05)
PROC: 0BH17EZ Insertion of Endotracheal Airway into Trachea, Via Natural or Artificial Opening (ICD-10-PCS; 2017-01-05)
PROC: 0DH67UZ Insertion of Feeding Device into Stomach, Via Natural or Artificial Opening (ICD-10-PCS; 2017-01-07)
DX: J96.01 Acute respiratory failure with hypoxia (principal); J15.211 Pneumonia due to Methicillin susceptible Staphylococcus aureus; N17.9 Acute kidney failure, unspecified; F10.231 Alcohol dependence with withdrawal delirium; D69.6 Thrombocytopenia, unspecified; F33.2 Major depressive disorder, recurrent severe without psychotic features; E87.1 Hypo-osmolality and hyponatremia; E87.2 Acidosis; K86.1 Other chronic pancreatitis; R44.3 Hallucinations, unspecified; F17.210 Nicotine dependence, cigarettes, uncomplicated; Y95 Nosocomial condition; E87.6 Hypokalemia; I10 Essential (primary) hypertension; E78.5 Hyperlipidemia, unspecified; G40.909 Epilepsy, unspecified, not intractable, without status epilepticus; G89.29 Other chronic pain; M54.9 Dorsalgia, unspecified; E86.0 Dehydration; I95.9 Hypotension, unspecified; Z88.8 Allergy status to other drugs, medicaments and biological substances; F41.9 Anxiety disorder, unspecified; E83.51 Hypocalcemia; E83.42 Hypomagnesemia; E11.9 Type 2 diabetes mellitus without complications; Z79.84 Long term (current) use of oral hypoglycemic drugs; K21.9 Gastro-esophageal reflux disease without esophagitis
CPT/HCPCS: 31500; 36600; 70450; 71010; 74000; 76770; 80048; 80053; 80076; 80200; 80202; 80307; 81003; 82140; 82308; 82550; 82553; 82570; 82803; 82947; 83605; 83735; 84100; 84132; 84156; 84300; 84484; 85025; 85027; 87040; 87070; 87077; 87086; 87186; 87205; 87491; 87591; 87899; 92526; 92610; 93005; 94002; 94003; 94010; 94760; 94761; 96361; 96372; 96374; 96375; 97161; 97165; 99285; G0480; G8996-GN; G8997-GN; G8998-GN; J0610; J1650; J1953; J2060; J2543; J3260; J3370; J3411; J3475; J3486; J7042

== ENCOUNTER → 2017-04-05 | Outpatient (CLI) | payer OTHER ==
[~2017-04-05] MED LIST changes: +ACETAMINOPHEN650 M1 PO; +CELEXA20 MG PO; +CLEOCIN HCL300 M1 PO; +COMBIVENT U/D3 M2 INH; +LIPITOR PO; +VISTARIL PO
--- NOTE | ~2017-04-05 | CT57 ---
[facility] A Service of [facility] RADIOLOGY TEXT RESULTS PATIENT: KWAME MONTANA LOCATION: [facility] : 61 UNIT #: [id number] AGE: [address]: Fe Rey SEX: M ORDER DR: [id number] [facility] [address] [place], [place] [address] [id number] O MR#: [id number] [facility] #: [id number] NAME: KWAME MONTANA : 1965 SEX: M STUDY DATE/TIME: 04/05/2017 17:04 UNIT: [facility] ROOM: STUDY DESCRIPTION: CT Chest Wo Cont Attending Physician: Fe Rey A.P.R.N. Referring Physician: Fe Rey A.P.R.N. Ordering Physician: Fe Rey A.P.R.N. Primary Care Physician: Jeana Calderon M.D. MEDICAL IMAGING REPORT This report is preliminary unless electronic signature is present EXAM CT chest without contrast, 04/05/2017, at 1704 hours. CLINICAL HISTORY 51-year-old man who was diagnosed with pneumonia in December 2016 with abnormal chest x-ray for followup. COMPARISON Chest CT 03/18/2012, chest x-ray 01/13/2017, 01/07/2017. TECHNIQUE Helical noncontrasted images were obtained from the thoracic inlet through the adrenal glands. Sagittal and coronal reconstructions were performed. Total exam DLP 709 mGy-cm. This CT exam was performed with one or more of the following radiation dose reduction techniques: automatic exposure control, adjustment of mA and/or kV according to patient size, and iterative reconstruction. FINDINGS Images through the thoracic inlet demonstrate no thyroid lesion or supraclavicular adenopathy. Images through the chest demonstrate calcified precarinal and right hilar and infrahilar nodes without change. There is no pathologic adenopathy. The aorta, pulmonary arteries, cardiac chambers and pericardium are normal. The esophagus is normal. The lungs are well expanded with stable calcified granulomatous change in the inferior right middle lobe anteriorly. There is no evidence of pneumonia, edema or mass. Specifically, the lower lobes are clear. Limited views through the upper abdomen are negative. [facility] A Service of [facility] RADIOLOGY TEXT RESULTS PATIENT: KWAME MONTANA LOCATION: [facility] : 61 UNIT #: [id number] AGE: [address]: Fe Rey SEX: M ORDER DR: IMPRESSION Negative chest CT. There is underlying calcified granulomatous change. There is no evidence of pneumonia, edema, nodule or mass. No pathologic adenopathy. No significant change from 03/18/2012. Dictated by... Elizabeth Nicole M.D. THIS IS AN ELECTRONICALLY VERIFIED REPORT Elizabeth Nicole M.D. at 04/07/2017 9:26 AM MICHELLE/brian TD: 04/07/2017 00:01 JOB #: [id number] MEDICAL IMAGING REPORT Page 1 of 1 COPY
== END | disposition home or self-care (01) ==
LOC: CCAT 16:40
DX: J18.9 Pneumonia, unspecified organism (principal); J96.01 Acute respiratory failure with hypoxia; R93.8 Abnormal findings on diagnostic imaging of other specified body structures; F10.10 Alcohol abuse, uncomplicated; F10.121 Alcohol abuse with intoxication delirium
CPT/HCPCS: 71250